=== PATIENT | female | born 1990 | race Caucasian/White ===

== ENCOUNTER 2021-08-07 10:37 | Emergency (ER) | payer MEDICAID, SELFPAY ==
[2021-08-07 10:40] VITALS: BP 121/84; PULSE 94; RESP 22; TEMP 36.8; O2SAT 99; BMI 32.9
--- NOTE | 2021-08-07 10:43 | XR_ITS ---
FINAL REPORT CLINICAL HISTORY: hand pain FINDINGS: RIGHT HAND 3 views of the right hand were obtained. There is no acute fracture or dislocation. Visualized joint spaces are normally aligned. Soft tissues are unremarkable. IMPRESSION: No acute bony abnormality. Reviewed, Interpreted and Dictated by Rusty Skinner III, MD Transcribed by Carole Mina Authenticated and . [facility]
--- NOTE | 2021-08-07 10:50 | CA_ITS ---
FINAL REPORT TECHNIQUE: Sonographic images of the veins of the right upper extremity were obtained from axilla to antecubital fossa. Additionally, images of the internal jugular vein and subclavian vein were also obtained. CLINICAL HISTORY: right hand swelling, pain, IVDU,HX DVT FINDINGS: The veins of the right upper extremity are compressible from axilla to antecubital fossa. Blood flow is demonstrated by both color and spectral Doppler as well. The internal jugular vein and subclavian vein are also patent. IMPRESSION: No evidence of venous thrombosis of the upper extremity. Reviewed, Interpreted and Dictated by Rusty Skinner III, MD Transcribed by Carole Mina Authenticated and . [facility]
--- NOTE | 2021-08-07 11:00 | PC.NURSE ---
1100 US GUIDED IV PLACED PER Dandre BRAMBILA RN. PT TOLERATED WELL
--- NOTE | 2021-08-07 11:00 | HMH.EDGENADL ---
ED Disposition Clinical Impression: Localized swelling on right hand, Cellulitis of right hand Disposition: Home, Self-Care Condition on Discharge: Good Instructions: DI for Cellulitis -- Adult, How to Use an Elastic Bandage -- Edema, DI for Hand Pain Additional Instructions: You have been evaluated for right hand swelling, pain. Please take antibiotics as prescribed. Take anti-inflammatory medication as scheduled. Keep Trent wrap on for comfort. Follow-up with a primary care doctor in 1 to 2 days for symptom recheck. Return to the emergency department for any new or worsening symptoms. Prescriptions: cephALEXin [cephALEXin 500mg capsule*] 500 mg PO QID #28 cap Transmission Status: Pending to [facility] Naproxen [Naproxen 500mg tab] 500 mg PO BID #30 tab Transmission Status: Pending to [facility] Referrals: Provider,Referral, [Primary Care Provider] - Time of Disposition: 12:25 - Critical Care Critical Care Time: No Attestation: On , the high probability of a clinically significant, sudden or life threatening deterioration of the following system(s) required my full and direct attention, intervention and personal management. The time I documented below is in addition to time spent performing reported procedures but includes the following listed in this critical care notation. Medical Decision Making - Medical Records Medical records reviewed: Yes: I reviewed the patient's medical records. - Frantz Inquiry Pt receiving controlled substance: No Vital Signs: 08/07/21 10:40 Temperature 98.2 F Temperature Source Oral Pulse Rate [Brachial] 94 H Respiratory Rate 22 Blood Pressure [Left Arm] 121/84 Blood Pressure Mean [Left Arm] 96 Blood Pressure Source [Left Arm] Automatic Cuff Blood Pressure Position [Left Arm] Sitting 02 Sat by Pulse Oximetry 99 Oxygen Delivery Method Room Air - Lab Data Lab Results 08/07/21 11:38: WBC 7.8, RBC 4.75, Hgb 11.2 L, Hct 35.3 L, MCV 74.3 L, MCH 23.7 L, MCHC 31.9, RDW 14.6, Plt Count 286, MPV 6.8 L, Neut % (Auto) 57.0, Lymph % (Auto) 31.7, Coke % (Auto) 6.9, Eos % (Auto) 3.7, Baso % (Auto) 0.7, Neut # (Auto) 4.5, Lymph # (Auto) 2.5, Coke # (Auto) 0.5, Eos # (Auto) 0.3, Baso # (Auto) 0.1, ESR 20 08/07/21 11:38: Sodium 137, Potassium 3.9, Chloride 106, Carbon Dioxide 27, Anion Gap 7.9, BUN 10, Creatinine 0.40 L, Estimated Creat Clear 265, Estimated GFR 187, Est GFR ( Amer) 227, Glucose 90, Calcium 9.1, Total Bilirubin 0.7, AST 81 H, ALT 65, Alkaline Phosphatase 675 H, C-Reactive Protein 14.0 H, Total Protein 7.1, Albumin 3.7, Globulin 3.4 H, Albumin/Globulin Ratio 1.1 08/07/21 11:38: Serum HCG, Qual Negative Result diagrams: 08/07/21 11:38 08/07/21 11:38 Orders (Tests/Meds): ED MEDICATIONS Discontinued Medications Generic Name Dose Route Start Last Admin Trade Name Freq PRN Reason Stop Dose Admin Ibuprofen 600 mg 08/07/21 11:36 08/07/21 11:40 Ibuprofen 600 Mg Tablet PO 08/07/21 11:37 600 mg ONCE ONE Administration ORDERS Category Date Time Status XR hand RT min 3V Stat Exams 08/07/21 10:43 Taken Medical Decision Narrative: In summary this is a 31-year-old female with history of IV drug use, left upper extremity DVT, endocarditis who presents to the emergency department with pain and swelling of the right hand. Patient clinically stable on arrival. Vital signs within normal limits. Will obtain CBC, CMP, ESR, CRP, right hand x-ray and right upper extremity DVT ultrasound. Risk, strong palpable radial and ulnar pulses. Good capillary refill. Low concern for ischemic disease. Initial laboratory results are reassuring. No leukocytosis. CRP is slightly elevated at 14. ESR is within normal limits. There is no swelling of the wrist joint to suggest septic arthritis. X-ray shows no bony changes, no fracture, effusion. Upper extremity ultrasound shows no DVT. Given 600 mg ibuprofen Presentation is m
--- NOTE | 2021-08-07 11:04 | PC.NURSE ---
PT TO XR AT THIS TIME
--- NOTE | 2021-08-07 11:08 | PC.NURSE ---
RETURNED FORM XR
--- NOTE | 2021-08-07 11:09 | PC.NURSE ---
US AT BEDSIDE
--- NOTE | 2021-08-07 11:18 | PC.NURSE ---
LAB REQUESTED TO COLLECT ORDERED LABS, WILL SEND SOMEONE TO COLLECT
--- NOTE | 2021-08-07 11:27 | PC.NURSE ---
LAB AT BEDSIDE
--- NOTE | 2021-08-07 11:30 | PC.NURSE ---
lab at to draw labs
[2021-08-07 11:48] LABS: Basophils # 0.1 K/mm3 (0-0.2); Basophils % 0.7 % (0.1-2.0); Eosinophils # 0.3 K/mm3 (0.0-0.4); Eosinophils % 3.7 % (0.1-12.0); Hematocrit 35.3 % (37.0-47.0); Hemoglobin 11.2 g/dL (12.2-16.2); Lymphocytes # 2.5 K/mm3 (0.7-4.5); Lymphocytes % 31.7 % (10-50); Mean Corpuscular HGB Conc 31.9 g/dL (31.8-35.4); Mean Corpuscular Hemoglobin 23.7 pg (27.0-31.2); Mean Corpuscular Volume 74.3 fl (81-99); Mean Platelet Volume 6.8 fl (7.4-10.4); Monocytes # 0.5 K/mm3 (0.1-1.0); Monocytes % 6.9 % (1.7-9.3); Neutrophils # 4.5 K/mm3 (1.8-7.8); Platelet Count 286 K/mm3 (142-424); Red Blood Count 4.75 M/mm3 (4.20-5.40); Red Cell Distribution Width 14.6 % (11.5-17.5); White Blood Count 7.8 K/mm3 (4.8-10.8)
--- NOTE | 2021-08-07 11:48 | PC.NURSE ---
PT TO NURSES STATION. REQUESTING TO GO SMOKE. INFORMED OF [facility] NO SMOKING POLICY, PT CURSING. RETURNED TO ROOM
[2021-08-07 11:51] LABS: Chloride 106 mmol/L (98-107); Potassium 3.9 mmoL/L (3.5-5.1); Sodium 137 mmol/L (136-145)
[2021-08-07 11:53] LABS: Blood Urea Nitrogen 10 mg/dl (7-17); Creatinine Clearance Estimated 265 mL/min (50-200); Estimated Glomerular Filt Rate 187 ml/min (>60); GFR (African American) 227 ML/MIN (>60)
[2021-08-07 11:54] LABS: Alanine Aminotransferase 65 U/L (12-78); Albumin Level 3.7 g/dl (3.5-5.0); Albumin/Globulin Ratio 1.1 (1.1-1.8); Alkaline Phosphatase 675 U/L (38-126); Anion Gap 7.9 mEq/L (5-15); Aspartate Amino Transferase 81 U/L (14-36); Bilirubin,Total 0.7 mg/dl (0.2-1.3); Calcium 9.1 mg/dl (8.4-10.2); Carbon Dioxide 27 mmol/L (22.0-30.0); Globulin 3.4 g/dL (1.3-3.2); Glucose 90 mg/dl (74-100); Total Protein,Serum 7.1 g/dl (6.3-8.2)
[2021-08-07 12:01] LABS: HCG Qualitative, Serum Negative (Negative)
[2021-08-07 12:18] LABS: Erythrocyte Sedimentation Rate 20 mm/hr (0-20)
--- NOTE | 2021-08-07 12:18 | PC.NURSE ---
pt requesting portable phone to update family. no other needs voiced at this time
[2021-08-07 12:36] VITALS: BP 123/74; PULSE 89; RESP 16; TEMP 36.6; O2SAT 98
== END 2021-08-07 12:37 | disposition home or self-care (01) ==
PROVIDERS: Emergency Provider Emergency Medicine
DX: L03.113 Cellulitis of right upper limb (principal); R22.9 Localized swelling, mass and lump, unspecified; F19.10 Other psychoactive substance abuse, uncomplicated
CPT/HCPCS: 36415; 73130; 80053; 84703; 85025; 85651; 86140; 93971; 99284